=== PATIENT | male | born 1980 | race Hispanic/Latino ===

== ENCOUNTER 2018-03-05 19:45 | Emergency (ER) | payer SELFPAY ==
[2018-03-05] MEDS ORDERED: Oxymetazoline HCl 0.05% ( 15 ML ) ONE (20:28)
[2018-03-05] MEDS ORDERED: Labetalol HCl 100 MG/20 ML VIAL ONE (21:59)
[2018-03-05 22:03] LABS: #Basophils 0.1 thou/uL (0.0-0.2); #Eosinphils 0.2 thou/uL (0.0-0.7); #Lymphocytes 1.6 thou/uL (1.20-3.40); #Monocytes 0.5 thou/uL (0.11-0.59); %Basophils 0.9 % (0.0-1.0); %Eosinophils 1.6 % (0.0-10.0); %Lymphocytes 17.2 % (21.0-51.0); %Monocytes 5.3 % (0.0-10.0); %Neutrophils 74.9 % (42.0-75.0); Hemoglobin 14.8 g/dL (14.0-18.0); Mean Corpuscular HGB CONC 35.5 g/dL (32.0-36.0); Mean Corpuscular Hemoglobin 30.9 pg (27.0-31.0); Mean Platelet Volume 9.3 fL (7.4-10.4); Platelet Count 219 thou/uL (130-400); RBC Distribution Width 11.6 % (11.5-14.5); Red Blood Cell (RBC) Count 4.79 mill/uL (4.70-6.10); White Blood Cell (WBC) Count 9.3 thou/uL (4.8-10.8)
[2018-03-05 22:16] LABS: ALT (SGPT) 11 U/L (8-55); AST (SGOT) 16 U/L (5-34); Albumin 4.5 g/dL (3.5-5.0); Alkaline Phosphatase 114 U/L (40-150); Anion Gap 14 mmol/L (10-20); BUN (Urea Nitrogen) 18 mg/dL (8.9-20.6); Bilirubin, Total 0.4 mg/dL (0.2-1.2); Calc. Creatinine Clearance 0 mL/min (70-130); Calcium 9.6 mg/dL (7.8-10.44); Carbon Dioxide 27 mmol/L (22-29); Chloride 99 mmol/L (98-107); Estimated GFR-MDRD Greater than 90; Globulin 3.5 g/dL (2.4-3.5); Glucose 317 mg/dL (70-105); Potassium 4.3 mmol/L (3.5-5.1); Sodium 136 mmol/L (136-145)
[2018-03-05] MEDS ORDERED: cloNIDine 0.1 MG TAB ONE (22:47)
== END 2018-03-06 00:05 | disposition home or self-care (01) ==
LOC: ERS 19:45
DX: I10 Essential (primary) hypertension (principal); E11.9 Type 2 diabetes mellitus without complications; R04.0 Epistaxis
CPT/HCPCS: 36415; 80053; 82010; 85025; 96361; 96374

== ENCOUNTER 2022-11-09 11:42 | Emergency (ER) | payer SELFPAY, OTHER ==
[~2022-11-09 11:42] MED LIST: Iopamidol-370 76% 500 ML MDV (1 ML CHARGE) ONE
[2022-11-09] MEDS ORDERED: Acetaminophen 500 MG TAB ONE (13:51)
[2022-11-09] MEDS ORDERED: Ketorolac Tromethamine 30 MG/ML VIAL ONE ×2 (13:51→13:55)
[2022-11-09 14:05] LABS: #Basophils 0.1 thou/uL (0.0-0.2); #Monocytes 0.9 thou/uL (0.11-0.59); #Neutrophils 13.2 thou/uL (1.40-6.50); %Basophils 0.5 % (0.0-1.0); %Eosinophils 0.1 % (0.0-10.0); %Lymphocytes 7.2 % (21.0-51.0); %Monocytes 5.7 % (0.0-10.0); %Neutrophils 85.6 % (42.0-75.0); Hematocrit 40.3 % (42.0-52.0); Mean Corpuscular HGB CONC 34.7 g/dL (32.0-36.0); Mean Corpuscular Hemoglobin 30.5 pg (27.0-31.0); Mean Corpuscular Volume 87.8 fl (78.0-98.0); Platelet Count 178 10x3/uL (130-400); RBC Distribution Width 12.9 % (11.5-14.5); Red Blood Cell (RBC) Count 4.59 mill/uL (4.70-6.10); White Blood Cell (WBC) Count 15.4 10x3/uL (4.8-10.8)
[2022-11-09 14:38] LABS: ALT (SGPT) 14 U/L (8-55); AST (SGOT) 33 U/L (5-34); Albumin 4.5 g/dL (3.5-5.0); Alkaline Phosphatase 69 U/L (40-110); Anion Gap 13 mmol/L (10-20); BUN (Urea Nitrogen) 12 mg/dL (8.9-20.6); Bilirubin, Total 0.7 mg/dL (0.2-1.2); Calc. Creatinine Clearance 0 mL/min (70-130); Calcium 9.4 mg/dL (7.8-10.44); Carbon Dioxide 25 mmol/L (22-29); Chloride 99 mmol/L (98-107); Estimated GFR 113; Globulin 3.1 g/dL (2.4-3.5); Glucose 211 mg/dL (70-105); Lipase 12 U/L (8-78); Potassium 4.1 mmol/L (3.5-5.1); Protein, Total 7.6 g/dL (6.0-8.3); Sodium 133 mmol/L (136-145)
[2022-11-09 14:41] LABS: Bacteria/HPF None Seen HPF (None Seen); Bilirubin Negative (Negative); Blood, Urine 3+ (Negative); CAUTI Indications for Culture Pelvic or flank pain; Clarity Clear (Clear); Glucose, Urine (Dipstick) Greater than 1000 mg/dL (Negative); Ketone, Urine 10 mg/dL (Negative); Leukocyte Negative Leu/uL (Negative); Nitrite Negative (Negative); Protein, Urine (Dipstick) 30 mg/dL (Neg-Trace); RBC/HPF Greater than 50 HPF (0-3); Specific Gravity, Urine 1.035 (1.002-1.036); Squamous Epithelial 0-3 HPF (0-3); Urobilinogen Normal mg/dL (Less than 2); WBC/HPF 0-3 HPF (0-3); pH, Urine 5.5 (5.0-9.0)
[2022-11-09 14:43] LABS: Urine Culture Reflex No No
== END 2022-11-09 16:05 | disposition home or self-care (01) ==
LOC: ERS 11:42
DX: S32.048A Other fracture of fourth lumbar vertebra, initial encounter for closed fracture (principal); S32.038A Other fracture of third lumbar vertebra, initial encounter for closed fracture; S22.030A Wedge compression fracture of third thoracic vertebra, initial encounter for closed fracture; S22.050A Wedge compression fracture of T5-T6 vertebra, initial encounter for closed fracture; S22.040A Wedge compression fracture of fourth thoracic vertebra, initial encounter for closed fracture; R31.9 Hematuria, unspecified; E11.65 Type 2 diabetes mellitus with hyperglycemia; I10 Essential (primary) hypertension; F17.210 Nicotine dependence, cigarettes, uncomplicated; W10.8XXA Fall (on) (from) other stairs and steps, initial encounter
CPT/HCPCS: 36415; 71260; 74177; 80053; 81001; 83690; 85025; 93005; 96374; J1885; Q9967